=== PATIENT | female | born 1960 | race Caucasian/White ===

== ENCOUNTER 2023-11-04 08:57 | Outpatient (CLI) | payer OTHER, SELFPAY ==
--- NOTE | 2023-11-04 12:20 | WPDPFTINT ---
PFT Procedure Performed PFT Procedure Performed Spirometry with Pre/Post Bronchodilator Plethysmography (Lung Vol) Diffusing Cap (DLCO) Flow Vol Loop PFT Interpretation This is a pulmonary function test with pre and post-bronchodilator spirometry, plethysmography and diffusing capacity. The test was performed and results interpreted in accordance with the 2019 and 2005 ATS/ERS Task Force guidelines respectively using the Global Lung Function Initiative-2012 reference equations. Patient demonstrated good effort and cooperation. Reproducibility criteria were met. The quality of the pre bronchodilator spirometry maneuver was Grade A and post bronchodilator spirometry maneuver was Grade A. Findings: Spirometry:The contour the inspiratory and expiratory flow tracing are normal. The pre bronchodilator FVC is 3.55 L, 102% predicted. The pre bronchodilator FEV1 is 2.51 L, 92% predicted. The pre bronchodilator FEV1: FVC ratio 71%. The post bronchodilator FVC is 3.53 L, representing 1% decrease. The post bronchodilator FEV1 is 2.55 L, representing a 2% increase. The post bronchodilator FEV1: FVC ratio is 72%. Plethysmography: The total lung capacity is 5.09 L, 91% predicted. The functional residual capacity is 1.98 L, 70% predicted. The residual volume is 1.53 L, 79% predicted. Diffusing capacity: The diffusing capacity unadjusted for hemoglobin and carboxyhemoglobin is 20.7, 84% predicted. The diffusing capacity adjusted for alveolar volume is 4.21, 93% predicted. Impression: The spirometry is normal without evidence of an obstructive abnormality. There is no significant improvement after inhaling a single dose of albuterol. The lung volumes are normal. The diffusing capacity is normal. There are no prior studies for comparison
== END 2023-11-04 08:58 | disposition home or self-care (01) ==
PROVIDERS: Visit Provider Physician Assistant
DX: J45.909 Unspecified asthma, uncomplicated (principal)
CPT/HCPCS: 94060; 94726; 94729